=== PATIENT | female | born 1955 | race Caucasian/White ===

== ENCOUNTER 2019-06-07 08:20 | Day surgery (SDC) | payer OTHER ==
--- NOTE | 2019-06-07 08:30 | RAD REPORT ---
EXAM DESCRIPTION: RAD - Chest Pa And Lat (2 Views) - 06/07/2019 8:08 am CLINICAL HISTORY: PREOP Chest pain. COMPARISON: No comparisons FINDINGS: The lungs are clear. The heart is normal in size. No displaced fractures. IMPRESSION: No acute or concerning finding suspected.
[2019-06-07] MEDS ORDERED: Ringers Lactate 1,000 ML IV ONE ×4 (08:39→14:32)
[2019-06-07] MEDS ORDERED: NS 0.9% VIAL 10 ML ONE (08:39)
[2019-06-07] MEDS ORDERED: SUCCINYLCHOLINE 20 MG/ML (10 ML) IV ONE (08:41)
[2019-06-07] MEDS ORDERED: MIDAZOLAM HCL 2 MG/2 ML INJ ONE (08:43)
[2019-06-07] MEDS ORDERED: propofoL 200 MG/20 ML VIAL IV ONE (08:43)
[2019-06-07] MEDS ORDERED: FENTANYL CITR 250 MCG/5 ML ONE (08:44)
[2019-06-07] MEDS ORDERED: ROCURONIUM 50 MG/5 ML VIAL IV ONE ×3 (08:44→12:27)
--- NOTE | 2019-06-07 08:45 | EKG ---
Test Date: 2019-06-07 Test Time: 08:09:52 Unemployment Insurance Director: [place] MEASUREMENT RESULTS: Intervals: Rate: 46 HI: 152 QRSD: 130 QT: 500 QTc: 437 [place]: P: 16 HI: 152 QRS: 31 T: 39 INTERPRETIVE STATEMENTS: Marked sinus bradycardia Right bundle branch block Abnormal ECG No previous ECG available for comparison Electronically Signed On 06-07-19 08:44:51 LICENSED FUNERAL DIRECTOR AND EMBALMER by Micah Jacobs
[2019-06-07] MEDS: BACITRACIN 50000 UNIT VIAL ONE ×2 (08:48→09:30)
[2019-06-07] MEDS: GENTAMICIN SULF 80 MG/2ML INJ ONE ×2 (08:48→09:30)
[2019-06-07 09:00] LABS: Absolute Lymphocytes (CBC) 1.7 K/uL (0.7-4.9); Basophils % 0.6 % (0-1.3); Hematocrit 39.2 % (36.0-45.0); MPV 8.8 fL (7.6-11.3); RBC Red Blood Cell Count 4.69 M/uL (3.86-4.86)
[2019-06-07] MEDS ORDERED: CLINDAMYCIN 900MG/D5W 0 MG/0 ML IVPB IV ONE (09:12)
[2019-06-07] MEDS ORDERED: CLINDAMYCIN INJ 900 MG in NA CHLORIDE 0.9% 50 ML IV ONE (09:15)
[2019-06-07 10:03] LABS: Potassium 4.3 mmol/L (3.5-5.1)
[2019-06-07] MEDS ORDERED: dexAMETHasone 10 MG/ML VIAL ONE (10:18)
[2019-06-07] MEDS ORDERED: GLYCOPYRROLATE 0.2 MG/ML SYR ONE ×2 (10:39→13:39)
[2019-06-07] MEDS ORDERED: ONDANSETRON 4 MG/2 ML VIAL ONE ×2 (10:39→14:27)
[2019-06-07] MEDS ORDERED: Phenylephrine HCl 10 MG/ML 1 ML VIAL ONE (12:24)
[2019-06-07] MEDS ORDERED: NEOSTIGMINE 1 MG/ML -5 ML ONE (13:39)
[2019-06-07] MEDS ORDERED: Mastisol Adhesive Liq ONE (13:43)
[2019-06-07] MEDS: FENTANYL CITR 100 MCG/2 ML ONE ×4 (14:28→15:04)
--- NOTE | 2019-06-07 14:53 | EKG ---
Test Date: 2019-06-07 Test Time: 08:10:20 Archaeologist: [place] MEASUREMENT RESULTS: Intervals: Rate: 46 TN: 150 QRSD: 132 QT: 508 QTc: 444 [place]: P: 27 TN: 150 QRS: 31 T: 39 INTERPRETIVE STATEMENTS: Marked sinus bradycardia Right bundle branch block Abnormal ECG Compared to ECG 06/07/2019 08:09:52 No significant changes Electronically Signed On 06-07-19 14:51:40 TUNNEL MUCKER by Micah Jacobs
[2019-06-07 15:54] VITALS: BP 93/59; TEMP 97.1; O2SAT 93
[2019-06-07] MEDS ORDERED: CODEINE 30MG/APAP 300MG TAB ONE (15:57)
--- NOTE | 2019-06-08 08:30 | OP ---
Surgeon: Hiram Hanna MD Verifier: Johnie. Preoperative Diagnosis: Status post breast augmentation with descent. Postoperative Diagnosis: Status post breast augmentation with descent. Procedure Performed: Explant, lift. Anesthesia: General. Procedure In Detail: After satisfactory induction of general anesthesia, chest was prepped with Dura Prep, dry sterile drapes applied in usual manner. A 45 template was used outlined to outline both ar eolas. Then a transverse curvilinear incision was made. Intervening skin was de-epithelialized with dermabrader and EpiCut. Then transverse and lateral incisions were made with electrocautery. The f lap was thinned to 1.4 cm. Flaps were elevated towards the sternum, clavicle, and anterior axillary line, this was done on both sides simultaneously. Then the lateral incision was made. The implant w as textured saline, 350 mL implant filled to 456 on the left; 350 filled to 462 on the rig ht. After this was done, then conization was performed inferior incision was made, this w as done with 2-0 PDS sutures. straps were elevated at 12 o'clock, 1:30 and 3 o'clock ____ position with right breast. Then the straps were woven in and out of the pectorali s major muscle, back to base of cone, back to pectoral muscle, and back to base of cone, tied themsel ves with 2-0 PDS sutures. The was done from the 12 o'clock and 130 strap. The 3 o'clock strap was s ewn with sternum at 3 o'clock position with 2-0 Ethibond sutures. Left side was done in the mirror-i mage manner. The patient was sat up and then asymmetries and dog-ears were marked out. The patient was placed supine. skin as well. Then the wound was irrigated with antibiotic solution. A 10 MOOK was brought out of axilla sewn in place with 2-0 silk. Wound was closed with 3-0 Vicryl sub cu, 3-0 PDS running subcuticular tied in the vertical meridian breast. side was done, and then the patient was sat up. Site for new nipple-areolar complex was marked out. This was incised using 45 template. Tissue was excised, nipples delivered and sewn with interrupted 4-0 PDS followed by 4-0 PDS running subcuticular. Dressings consisted of tincture of benzoin, Steri-Strips, 5 x 5s, f luffs, and Mo wrap. The patient tolerated the procedure well. The amount removed from the right br east g, left breast 110 g. 462 on the right, 456 on the left . MERCEDEZ/ZULEIKAL Voice ID: [id number] Report ID: [id number]
== END 2019-06-07 17:10 | disposition home or self-care (01) ==
LOC: OR 08:20
PROVIDERS: ATTEND Specialist
PROC: 0H0V0ZZ Alteration of Bilateral Breast, Open Approach (ICD-10-PCS; principal; 2019-06-07 09:00)
DX: N64.81 Ptosis of breast (principal)
CPT/HCPCS: 93005 ×2; 85025; 80048; 36415; 88305; 71046; 19316; J2704; J0330; J2370; J1580; J2250; J3010 ×3; J1100; J2710; J7120 ×4; J2405 ×2